=== PATIENT | female | born 1970 | race African-American/Black ===

== ENCOUNTER 2021-03-11 15:23 | Emergency (ER) | payer OTHER ==
[~2021-03-11] VITALS: Ht 162.6 cm; Wt 55.0 kg
[~2021-03-11 15:23] MED LIST: BENA5TAB; INSHUMSS SUBCUT; INSLAN SQ; PRED1DRO LEFTEYE; TIMO15DR12 LEFTEYE; TIMO15DR12 RIGHTEYE
[2021-03-11 15:26] VITALS: BP 156/82
[2021-03-11] MEDS ORDERED: ACET650T37 MT (17:37)
[2021-03-11] MEDS ORDERED: ACETAMINOPHEN 325MG TABLET PO ONE (17:45)
== END 2021-03-11 17:50 | disposition home or self-care (01) ==
LOC: ER 15:23
DX: M25.512 Pain in left shoulder (principal); G89.29 Other chronic pain; M54.9 Dorsalgia, unspecified; F41.9 Anxiety disorder, unspecified; E11.9 Type 2 diabetes mellitus without complications; Z79.4 Long term (current) use of insulin
CPT/HCPCS: 73030; 81025; 99283